=== PATIENT | female | born 2000 | race Caucasian/White ===

== ENCOUNTER 2024-07-09 17:21 | Emergency (ER) | payer OTHER ==
[~2024-07-09] VITALS: Ht 170.2 cm; Wt 81.5 kg
[2024-07-09] MEDS ORDERED: SODIUM CHLORIDE 0.9% 1,000 ML IV ONE (18:30)
[2024-07-09 18:37] LABS: BASOPHILS 0.1 % (0-2); EOSINOPHILS 0.2 % (0-6); HEMATOCRIT 39.8 % (35.0-50.0); HEMOGLOBIN 13.6 g/dL (12.0-18.0); LYMPHOCYTES 7.2 % (24-44); MCH 28.5 (27-36); MCHC 34.3 g/dl (30-36); MCV 83.2 fl (81-99); MONOCYTES 6.4 % (0-12); NEUTROPHILS 86.1 % (39-80); PLATELET COUNT 179 K/uL (140-440); RBC 4.78 M/ul (4.3-5.7); RDW 12.4 (10.5-15.0)
[2024-07-09 18:59] LABS: ALBUMIN 3.1 g/dL (3.4-5.0); ALBUMIN/GLOBULIN RATIO 0.82 (1.1-2.4); ANION GAP 13.2 (7-21); BILIRUBIN, TOTAL 0.4 mg/dL (0.2-1.0); BUN/CREATININE RATIO 14.03 (6.0-28.6); CALCIUM 9.1 mg/dL (8.5-10.1); CREATININE, SERUM 0.57 mg/dL (0.55-1.02); MAGNESIUM 1.9 mg/dL (1.8-2.4); POTASSIUM 3.2 mmol/L (3.5-5.1); PROTEIN, TOTAL 6.9 g/dL (6.4-8.2)
[2024-07-09 20:18] LABS: BILIRUBIN, URINE NEGATIVE (negative); BLOOD/HGB, URINE NEGATIVE (Negative); KETONE, URINE >=80 (Negative); LEUK ESTERASE, URINE TRACE (negative); NITRITE, URINE NEGATIVE (negative)
[2024-07-09 20:24] LABS: EPITHELIAL CELLS, URINE SQUAMOUS 3+ /lpf (0-1+)
[2024-07-09 20:25] LABS: BACTERIA, URINE RARE /hpf (negative); CASTS, URINE NONE SEEN \\lpf; COLLECTION TYPE, URINE CLEAN CATCH; CRYSTALS, URINE NONE SEEN (0-1+); RED BLOOD CELLS, URINE 0-1 /hpf (0-5); REFLEX CULTURE, URINE No (No)
[2024-07-09] MEDS ORDERED: FAMOTIDINE 20 MG/ 2 ML VIAL IV ONE (21:00)
[2024-07-09] MEDS ORDERED: ondansetron HCL 4 MG/2 ML VIAL IV ONE (21:00)
[2024-07-09] MEDS ORDERED: LACTATED RINGER'S 1,000 ML IV ONE (21:00)
[2024-07-09 21:41] LABS: CORONAVIRUS COVID-19 AG NEGATIVE (NEGATIVE); INFLUENZA A AG NEGATIVE (NEGATIVE); INFLUENZA B AG NEGATIVE (NEGATIVE)
[2024-07-09] MEDS ORDERED: ONDANSETRON 4 MG HOME.PACK SL ONE (23:15)
[2024-07-09 23:21] VITALS: BP 132/71
--- NOTE | 2024-07-11 10:55 | EKG ---
[facility] [address] [facility] [place] [address] Signed Sinus tachycardia T wave abnormality, consider anterolateral ischemia Abnormal ECG No previous ECGs available Confirmed by Esha Perry DO ([id number]) on 07/11/2024 10:55:35 AM Electronically Signed By: ESHA PERRY DO 07/11/24 1055 PATIENT NAME: EDUARD VINCENT Electrocardiogram DATE OF : [birth year] PHYSICIAN: ESHA PERRY DO REPORT #: [id number] REPORT IS CONFIDENTIAL AND NOT TO BE RELEASED WITHOUT AUTHORIZATION
[2024-07-11 17:24] LABS: THYROXINE FREE 5.4 ng/dL (0.9-1.7)
[2024-07-11 22:49] LABS: TRIIODOTHYRONINE,FREE FREE T3 20.8 pg/mL (2.5-4.3)
== END 2024-07-09 23:22 | disposition home or self-care (01) ==
LOC: ED
PROVIDERS: Emergency Medicine; Internal Medicine
DX: O99.611 Diseases of the digestive system complicating pregnancy, first trimester (principal); K52.9 Noninfective gastroenteritis and colitis, unspecified; O99.281 Endocrine, nutritional and metabolic diseases complicating pregnancy, first trimester; E86.0 Dehydration; E05.00 Thyrotoxicosis with diffuse goiter without thyrotoxic crisis or storm; O30.001 Twin pregnancy, unspecified number of placenta and unspecified number of amniotic sacs, first trimester; Z3A.08 8 weeks gestation of pregnancy; Z88.0 Allergy status to penicillin
CPT/HCPCS: 36415; 80053; 81001; 83735; 83880; 84439; 84443; 84481; 84484; 85025; 87088; 93005; 93010; 96374; 96375; 99284-25; A9270; J2405; J7030; J7121